=== PATIENT | male | born 1930 | race Caucasian/White ===

== ENCOUNTER 2017-10-14 14:09 | Emergency (ER) | payer MEDICARE ==
--- NOTE | 2017-10-14 15:34 | RAD ---
Indication: Head injury. CT of the brain was performed without IV contrast. Comparison is made to to previous exam dated July 10, 2014. Ventricular structures are midline. No midline shift is noted. The extraction spaces are unremarkable. Is no evidence of intracranial mass or hemorrhage. Periventricular lucency consistent with chronic ischemic matter change is noted. There is no evidence of intracranial mass or hemorrhage. Mastoid air cells and paranasal sinuses are unremarkable. IMPRESSION: Chronic ischemic White matter change without evidence of intracranial mass or hemorrhage.
--- NOTE | 2017-10-14 16:00 | RAD ---
Indication: RIGHT knee pain post fall. Comparison: None. Technique: RIGHT knee: AP, tunnel, crosstable lateral, sunrise views. Report: Total knee prosthesis in place. Negative for periprosthetic fracture or stigmata of component loosening. No significant joint effusion. 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 Peripheral vascular calcifications. Anterior soft tissue swelling superficial to the patellar tendon and proximal tibia. IMPRESSION: #. No evidence for periprosthetic fracture or prosthesis loosening. #. Anterior soft tissue swelling.
--- NOTE | 2017-10-14 16:13 | RAD ---
INDICATION: RIGHT wrist and hand pain post fall. Remote previous distal radius fracture. COMPARISON: June 14, 2007 TECHNIQUE: AP and lateral views RIGHT wrist. AP and lateral views RIGHT hand REPORT: Bone density appears decreased throughout. No fracture at the wrist or hand evident. Negative for dislocation. Chondrocalcinosis at the triangular fibrocartilage at the wrist as well as the hyaline articular cartilage at the first metacarpal phalangeal joint. Suggestion of loose bodies at the volar aspect of the wrist. Polyarticular osteoarthritis predominantly mild with more significant moderate osteoarthritis at the first metacarpal phalangeal joint. Diffuse soft tissue swelling most prominent at the second finger. IMPRESSION: #. Negative for fracture at the wrist or hand. #. Soft tissue swelling most prominent at the second finger. #. Osteoarthritis most prominent at the first metacarpal phalangeal joint. #. Chondrocalcinosis which may be attributable to osteoarthritis or CPPD arthropathy.
--- NOTE | 2017-10-14 17:20 | ED ---
Mayra Glover Emily, scribed for Art Lobato on 10/14/17 at 1506 . 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 Pt reports that he stubbed his R toe, and fell. He denies LOC. The patient rates the pain 2/10 in severity. Symptoms aggravated by nothing. Symptoms alleviated by nothing. Patient reports R wrist pain, R knee pain, and abrasion on R cheek. Patient denies neck pain and dizziness. Family is concerned because the patient had the R hip and R knee replaced in March,. - History of Current Complaint Chief Complaint: EDFacialInjury Stated Complaint: FALL Time Seen by Provider: 10/14/17 14:36 Hx Obtained From: Patient Mechanism of Injury: Fall Loss of Consciousness: no loss of consciousness Onset/Duration: Started Hours Ago, Traumatic, Still Present Onset of Pain: Immediate Onset Severity: Mild Current Severity: Mild Pain Intensity: 2 Pain Scale Used: 0-10 Numeric Location: Extremities Aggravating Factor(s): Nothing Alleviating Factor(s): Nothing - Allergy/Home Medications Allergies/Adverse Reactions: Allergies Allergy/AdvReac Type Severity Reaction Status Date / Time No Known Allergies Allergy Verified 05/14/13 21:33 Home Medications: Home Medications Aspirin EC TAB* [Ecotrin EC Low Dose 81 MG*] 81 mg PO DAILY 10/14/17 [History Confirmed 10/14/17] Atorvastatin* [Lipitor*] 40 mg PO DAILY 10/14/17 [History Confirmed 10/14/17] Azelastine/Fluticasone DEVANG(NF [Dymista(NF)] 1 spray BOTH NARES BID 10/14/17 [ History Confirmed 10/14/17] Brimonidine P 0.15%(NF) [Alphagan P 0.15%(NF)] 1 drop BOTH EYES DAILY 10/14/17 [ History Confirmed 10/14/17] Amaury/D3/Mag11/Zinc/Blast Setter/Stevo/Bor [Caltrate 600+D Plus] 1 tab PO DAILY 10/14/17 [ History Confirmed 10/14/17] Clobetasol Propionate/Emoll [Clobetasol Propionate Emo] 0.05 % TOPICAL BID 10/14 [History Confirmed 10/14/17] Cyanocobalamin TAB* [Vitamin B12 TAB*] 1,000 mcg PO DAILY 10/14/17 [History Confirmed 10/14/17] Esomeprazole(NF) [NexIUM(NF)] 40 mg PO DAILY 10/14/17 [History Confirmed ] Ipratropium 0.5MG/2.5ML NEB* [Atrovent 0.5 MG NEB.SAEID*] 0.5 mg INH Q6H PRN 10/14 [History Confirmed 10/14/17] Isosorbide Mononitrate ER TAB* [Imdur ER TAB*] 60 mg PO DAILY 10/14/17 [History Confirmed 10/14/17] Latanoprost 0.005%* [Xalatan 0.005%*] 1 drop BOTH EYES BEDTIME 10/14/17 [ History Confirmed 10/14/17] Leuprolide KIT 22.5 MG (NF) [Lupron Depot-3 (NF)] 45 mg IM Q6M 10/14/17 [ History Confirmed 10/14/17] LevoCETirizine TAB (NF) [Xyzal TAB (NF)] 5 mg PO QPM 10/14/17 [History Confirmed 10/14/17] Levothyroxine TAB* [Synthroid TAB*] 50 mcg PO DAILY 10/14/17 [History Confirmed 10/14/17] Losartan TAB* [Cozaar TAB*] 50 mg PO DAILY 10/14/17 [History Confirmed 10/14/17] Meloxicam(NF) [Mobic(NF)] 15 mg PO DAILY WITH MEAL 10/14/17 [History Confirmed 10/14/17] Metoprolol Succinate XL TAB* [Toprol XL TAB*] 50 mg PO BID 10/14/17 [History Confirmed 10/14/17] Nitroglycerin TAB 0.4 MG* 0.4 mg SL Q5M PRN 10/14/17 [History Confirmed 10/14/17 ] Nystatin/Triamcinolone CR(NF) [Mycolog CREAM(NF)] 1 applic TOPICAL BID PRN 10/14 [History Confirmed 10/14/17] dilTIAZem HCl [Cartia Xt] 180 mg PO DAILY 10/14/17 [History Confirmed 10/14/17] PMH/Surg Hx/FS Hx/Imm Hx Previously Healthy: No Endocrine/Hematology History: Reports: Hx Thyroid Disease - goiter, hypothyriod , Hx Anemia Cardiovascular History: Reports: Hx Hypercholesterolemia, Hx Hypertension, Hx Pacemaker/ICD, Hx Syncope - tonight was first time! Respiratory History: Reports: Hx Chronic Obstructive Pulmonary Disease (COPD), Hx Sleep Apnea GI History: Reports: Hx Gastroesophageal Reflux Disease History: Reports: Hx Chronic Renal Failure, Other Problems/Disorders - prostate cancer Musculoskeletal History: Reports: Hx Back Problems Sensory History: Reports: Hx Contacts or Glasses Opthamlomology History: Reports: Hx Contacts or Glasses Neurological History: Reports: Other Neuro Impairments/Disorders - left eye tick - Cancer History Cancer Type, Location and Year: prostate Hx Chemotherapy: Yes - lupron Hx Radiation Therapy: Yes - protate - Surgical History Surgery Procedure, Year, and Place: 01/16/13- cardiac stents. Right knee: 5 times [id number]. GB/appy. Carotid endartectomy. cataracts. pacemaker. hernia repair Hx Anesthesia Reactions: No Infectious Disease History: No Infectious Disease History: Reports: Hx Shingles - 24 years ago (1989) Denies: Traveled Outside the [place] in Last 30 Days - Family History Known Family History: Negative: Cardiac Disease, Diabetes - Social History Occupation: Retired Lives: Alone Alcohol Use: Occasionally Hx Substance Use: No Substance Use Type: Reports: None Hx Tobacco Use: Yes Smoking Status (MU): Former Smoker Review of Systems Positive: Other - Positive R wrist pain and R knee pain. Negative neck pain Positive: Other - Positive abrasion over R cheek Neurological: Other - Negative dizziness All Other Systems Reviewed And Are Negative: Yes Physical Exam - Summary Physical Exam Summary: Appearance: Well appearing, no pain distress Skin: warm, dry, reflects adequate perfusion Head/face: normal Eyes: EOMI, SAPNA ENT: normal Neck: supple, non-tender Respiratory: CTA, breath sounds present Cardiovascular: RRR, pulses symmetrical Abdomen: non-tender, soft Bowel: present Musculoskeletal: R wrist tenderness, strength/ROM intact Neuro: normal, sensory motor intact, A&Ox3 Triage Information Reviewed: Yes Vital Signs On Initial Exam: Initial Vitals Temp Pulse Resp BP Pulse Ox 98.2 F 64 18 126/67 95 10/14/17 14:28 10/14/17 14:28 10/14/17 14:28 10/14/17 14:28 10/14/17 14:28 Vital Signs Reviewed: Yes Diagnostics - Vital Signs Vital Signs Temp Pulse Resp BP Pulse Ox 10/14/17 14:28 98.2 F 64 18 126/67 95 - Laboratory Lab Statement: Any lab studies that have been ordered have been reviewed, and results considered in the medical decision making process. - Radiology Knee XR Radiology Interpretation Completed By: Radiologist - Knee XR reveals, per radiologist, no evidence for periprosthetic fracture or prosthesis loosening. Anterior soft tissue swelling. ED physician has reviewed this radiology report. Hand XR Radiology Interpretation Completed By: Radiologist - Hand XR reveals, per radiologist, Negative for fracture at the wrist or hand. Soft tissue swelling most prominent at the second finger. Osteoarthritis most prominent at the first metacarpal phalangeal joint. Chondrocalcinosis which may be attributable to osteoarthritis or CPPD arthropathy. ED physician has reviewed this radiology report. Wrist XR Radiology Interpretation Completed By: Radiologist - Wrist XR reveals, per radiologist, Negative for fracture at the wrist or hand. Soft tissue swelling most prominent at the second finger. Osteoarthritis most prominent at the first metacarpal phalangeal joint. Chondrocalcinosis which may be attributable to osteoarthritis or CPPD arthropathy. ED physician has reviewed this radiology report. - CT Brain CT CT Interpretation Completed By: Radiologist - Brain CT reveals, per radiologist , chronic ischemic white matter change without evidence of intracranial mass or hemorrhage. ED physician has reviewed this radiology report. 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 Pt reports that he stubbed his R toe, and fell. He denies LOC. Patient reports R wrist pain, R knee pain, and abrasion on R cheek. Physical Exam Findings: Tenderness over R wrist. Brain CT reveals, per radiologist, chronic ischemic white matter change without evidence of intracranial mass or hemorrhage. Knee XR reveals, per radiologist, no evidence for periprosthetic fracture or prosthesis loosening. Anterior soft tissue swelling. Hand and wrist x rays reveal, per radiologist, Negative for fracture at the wrist or hand. Soft tissue swelling most prominent at the second finger. Osteoarthritis most prominent at the first metacarpal phalangeal joint. Chondrocalcinosis which may be attributable to osteoarthritis or CPPD arthropathy. Patient will be discharged with follow up from PCP. The patient is agreeable with this plan. - Diagnoses Differential Diagnosis/HQI/PQRI: Positive: Abrasion(s), Contusion(s), Fracture, Hematoma(s), Other - head injury/bleeding Provider Diagnoses: Head injury, Contusion of right knee, Contusion of right wrist, Fall Discharge - Sign-Out/Discharge Documenting (check all that apply): Discharge/Admit/Transfer - discharge home - Discharge Plan Condition: Stable Disposition: HOME Patient Education Materials: Head Injury (ED), Contusion in Adults (ED) Referrals: Chung Bloom DO [Primary Care Provider] - 3 Days Additional Instructions: RETURN TO THE EMERGENCY DEPARTMENT FOR NEW OR WORSENING SYMPTOMS - Billing Disposition and Condition Condition: STABLE Disposition: Home The documentation as recorded by the Mayra coats Emily accurately reflects the service I personally performed and the decisions made by , Art Lobato.
[2017-10-14 18:02] VITALS: BP 148/70
== END 2017-10-14 18:00 | disposition home or self-care (01) ==
LOC: ED 14:09
DX: S60.211A Contusion of right wrist, initial encounter (principal); S80.01XA Contusion of right knee, initial encounter; M25.531 Pain in right wrist; M25.561 Pain in right knee; S00.81XA Abrasion of other part of head, initial encounter; W19.XXXA Unspecified fall, initial encounter; Y92.9 Unspecified place or not applicable; Z87.891 Personal history of nicotine dependence
CPT/HCPCS: 70450; 99282

== ENCOUNTER 2017-11-01 10:47 | Emergency (ER) | payer MEDICARE ==
[2017-11-01 11:24] VITALS: BP 136/72
--- NOTE | 2017-11-01 11:53 | UC ---
Lower Extremity/Ankle HPI - HPI Summary HPI Summary: 87 YO M C/O RIGHT LEG SWELLING SINCE FALL ON 10/14/17 THE SWELLING IS ANTERIOR LATERAL. NO C/O POSTERIOR PAIN/SWELLING/ERYTHEMA. NO CHEST PAIN/SOB. THE SWELLING HAS NOT CHANGED SINCE 10/14/17. THE PATIENT IS CONCERNED ABOUT A BLOOD CLOT. TAKES AN ASA 81MG PO QD. - History of Current Complaint Chief Complaint: UCLowerExtremity Stated Complaint: SP FALL/RT LEG SWELLING Time Seen by Provider: 11/01/17 11:45 Pain Intensity: 0 - Allergies/Home Medications Allergies/Adverse Reactions: Allergies Allergy/AdvReac Type Severity Reaction Status Date / Time No Known Allergies Allergy Verified 11/01/17 11:24 PMH/Surg Hx/FS Hx/Imm Hx Previously Healthy: No - Surgical History Surgical History: Yes Surgery Procedure, Year, and Place: 01/16/13- cardiac stents. Right knee: 5 times [id number]. GB/appy. Carotid endartectomy. cataracts. pacemaker. hernia repair - Family History Known Family History: Negative: Cardiac Disease, Diabetes - Social History Alcohol Use: Occasionally Substance Use Type: None Smoking Status (MU): Former Smoker - Immunization History Most Recent Influenza Vaccination: 2014 Most Recent Tetanus Shot: Dec 2012 Most Recent Pneumonia Vaccination: 2012 Review of Systems Constitutional: Negative Skin: Other - SWELLING RT LOWER ANTERIOR LATERAL LEG Respiratory: Negative Cardiovascular: Negative Gastrointestinal: Negative Genitourinary: Negative Motor: Negative Neurovascular: Negative Musculoskeletal: Other: - RIGHT SHOULDER PAIN AND RT FOREARM CAST SINCE THE FALL Neurological: Negative Psychological: Negative Is Patient Immunocompromised?: No All Other Systems Reviewed And Are Negative: Yes Physical Exam Triage Information Reviewed: Yes Appearance: Well-Appearing Vital Signs: Initial Vital Signs Temp 97.8 F 11/01/17 11:19 Pulse 69 11/01/17 11:19 Resp 16 11/01/17 11:19 BP 136/72 11/01/17 11:19 Pulse Ox 97 11/01/17 11:19 Vital Signs Reviewed: Yes Neck exam: Normal Neck: Positive: Supple Respiratory Exam: Normal Cardiovascular Exam: Normal Musculoskeletal Exam: Other - RT FOREARM CAST AND DECREASED ROM RT SHOULDER. SWELLING RIGHT LOWER ANTERIOR LATERAL LEG; 7CM DIAMETER, 5MM RAISED, FLUCUANT, NON TENDER. POSTERIOR CALF/POPLITEAL/ INNER THIGH NON TENDER. Psychological Exam: Normal Skin Exam: Other - NO CALOR/ECCYMOSIS OVER THE SWELLING Lower Extremity Course/Dx - Course Course Of Treatment: WE FDO NOT HAVE US AVAIABLE TODAY IN CLINIC FOR US EVAL OF THE SWELLING OR TO R/O DVT. NO EVIDENCE OF DVT ON CLINICAL EXAM. I DISCUSSED THE USE OF US TO EVALUATE THE SWELLING AND POSSIBILITY OF DVT WITH THE PATIENT AND RECOMMENDED GOING TO THE ED TODAY TO HAVE US VERSES RETURNING HERE OR GOING THROUGH HIS PMD TO OBTAIN THE US. - Differential Dx/Diagnosis Provider Diagnoses: RIGHT LOWER LEG SOFT TISSUE HEMATOMA. RIGHT LEG PAIN/ SWELLING Discharge - Sign-Out/Discharge Documenting (check all that apply): Patient Departure - Discharge Plan Condition: Stable Disposition: HOME Patient Education Materials: Leg Pain (ED), Hematoma (ED) Referrals: Chung Bloom DO [Primary Care Provider] - Additional Instructions: FOLLOW UP WITH YOUR DOCTOR. GET RECHECKED FOR ANY WORSENING OF YOUR CONDITION OR QUESTIONS OR CONCERNS. - Billing Disposition and Condition Condition: STABLE Disposition: Home
== END 2017-11-01 12:04 | disposition home or self-care (01) ==
LOC: UCCORT 10:47
DX: M79.81 Nontraumatic hematoma of soft tissue (principal); M79.604 Pain in right leg; M79.89 Other specified soft tissue disorders; Z87.891 Personal history of nicotine dependence
CPT/HCPCS: 99212; G0463